=== PATIENT | female | born 1995 | race American Indian/Alaskan Native ===

== ENCOUNTER 2020-06-16 12:44 | Emergency (ER) | payer SELFPAY ==
[2020-06-16 12:53] VITALS: BP 125/83
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
--- NOTE | 2020-06-16 13:48 | XRay Report ---
LEFT WRIST 3 VIEW(S) INDICATION / CLINICAL INFORMATION: SWELLING L ARM COMPARISON: None available. FINDINGS: BONES / JOINT(S): Acute moderately displaced fracture of left distal radial metaphysis extending into the radiocarpal and distal radioulnar joints. Mildly displaced ulna styloid fracture No significant arthritis. SOFT TISSUES: No significant abnormality. ADDITIONAL FINDINGS: None. Signer Name: Steven Valencia MD Signed: 06/16/2020 1:44 PM Workstation Name: [id number]
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
[2020-06-16] MEDS ORDERED: HYDROcodone/ACETAMINOPHEN 5-325 MG TAB PO ONE (14:25)
== END 2020-06-16 14:46 | disposition home or self-care (01) ==
LOC: ED 12:44
DX: S62.102A Fracture of unspecified carpal bone, left wrist, initial encounter for closed fracture (principal); Z79.899 Other long term (current) drug therapy; X50.9XXA Other and unspecified overexertion or strenuous movements or postures, initial encounter; Y93.89 Activity, other specified; Y92.89 Other specified places as the place of occurrence of the external cause; Y99.8 Other external cause status
CPT/HCPCS: 99283